=== PATIENT | female | born 1955 | race African-American/Black ===

== ENCOUNTER → 2016-10-23 | Day surgery (SDC) | payer SELFPAY ==
[~2016-10-23] MED LIST: ALIGN4 MG PO; AMITIZA24 MCG PO; AMITIZA8 MCG PO; AMLODIPINE BESY10 MG PO; AMLODIPINE BESYL5 MG PO; B COMPLEX SUBLI59 M1 PO; DOC-Q-LACE100 MG PO; NORVASC PO; ORUDIS75 M1 PO; PRILOSEC PO; VITAMIN D3400 UNIT/1 PO
--- NOTE | ~2016-10-23 | EKG ---
PATIENT: MARVIN RENEE UNIT #: [id number] Ventricular Rate: 56 BPM Atrial Rate: 56 BPM P-R Interval: 150 ms QRS Duration: 84 ms Q-T Interval: 406 ms QTC Calculation(Bezet): 391 ms P [place]: 58 degrees Calculated R [place]: 0 degrees Calculated T [place]: 7 degrees Diagnosis Line: Sinus bradycardia Diagnosis Line: Moderate voltage criteria for LVH, may be normal Diagnosis Line: variant Diagnosis Line: Borderline ECG Diagnosis Line: Diagnosis Line: Confirmed by CASSIE BEYER MD ([id number]) on Diagnosis Line: 10/23/2016 11:12:48 AM INTERPRETING NILESH FRAGOSO
--- NOTE | ~2016-10-23 | OR ---
Unit #: [id number] #: [id number] Patient: MARVIN RENEE [id number] [address] [address] [id number] MR#: [id number] NAME: MARVIN RENEE ROOM: Date of Procedure: 10/23/2016 Admission Date: 10/23/2016 Surgeon: Berto Spivey M.D. : 1955 Attending Physician: Berto Spivey M.D. Primary Care Physician: Christelle Bond M.D. OPERATIVE REPORT PREOPERATIVE DIAGNOSIS Chronic obesity. POSTOPERATIVE DIAGNOSIS Chronic obesity. PROCEDURE PERFORMED Removal of gastric balloon. ANESTHESIA General anesthesia. ESTIMATED BLOOD LOSS Minimal. IV FLUIDS 500 crystalloid. COMPLICATIONS None. INDICATIONS FOR PROCEDURE The patient is a 61-year-old, who has had a gastric balloon done very well. She presents for balloon removal. DESCRIPTION OF PROCEDURE The patient was taken to the operating theater and placed in a supine position. General anesthesia was induced. She was then placed in left lateral decubitus position. EGD scope was then passed under direct vision into the esophagus and then down to the stomach. The patient had a small amount of retained food contents. This was suctioned free. I then used a needle catheter to puncture the balloon and remove the fluid. The wound was then grasped with a grasper tool and delivered via the esophagus transorally. The patient tolerated the procedure well and sent to recovery room in good condition. Dictated by... Berto Spivey M.D. JNO/arias Unit #: [id number] #: [id number] Patient: MARVIN RENEE TD: 10/23/2016 16:10 JOB #: [id number] OPERATIVE REPORT Page 1 of 1 X Berto Spivey MD X PROCEDURE OPERATIVE NOTE
== END | disposition home or self-care (01) ==
LOC: CSUR 09:57
DX: E66.01 Morbid (severe) obesity due to excess calories (principal); K21.9 Gastro-esophageal reflux disease without esophagitis; I10 Essential (primary) hypertension; Z68.22 Body mass index [BMI] 22.0-22.9, adult; Z79.899 Other long term (current) drug therapy; Z90.710 Acquired absence of both cervix and uterus; Z98.890 Other specified postprocedural states
CPT/HCPCS: 93005; J0330; J2250; J2405; J3010